=== PATIENT | female | born 2000 | race Caucasian/White ===

== ENCOUNTER 2024-02-14 10:44 | Outpatient (OUT) | payer OTHER, SELFPAY ==
--- NOTE | 2024-02-14 10:55 | US_ITS ---
[address] [address] Patient Name: GAGAN POST MRN: [id number] date: 2000 Sex: F Assigned Patient Location: Current Patient Location: Accession/Order Number: [id number] Exam Date: 02/14/2024 11:00 Report Date: 02/15/2024 04:25 At the request of: NON-STAFF PHYSICIAN Procedure: US pelvis w/ transvaginal EXAMINATION: US pelvis w/ transvaginal HISTORY: Intrauterine Device Placement Z97.5 COMPARISON: No relevant comparison available. TECHNIQUE: Transabdominal and/or transvaginal sonographic examination was performed as indicated by examination type. FINDINGS: UTERUS: Normal size and appearance. Uterus size: 7.2 x 4.2 x 3.0 cm ENDOMETRIUM: IUD within endometrial cavity appearing to be in good position. Normal homogeneous appearance. Endometrial thickness: 9 mm RIGHT OVARY: Normal size and appearance. Duplex Doppler demonstrates normal waveform and flow; resistive index 0.7. Ovary size: 3. 62.5 x 2.0 cm LEFT OVARY: Normal size and appearance. Duplex Doppler demonstrates normal waveform and flow; resistive index 0.5. Ovary size: 2.0 x 1.7 x 2.3 cm CUL-DE-SAC: Unremarkable. No significant free fluid. BLADDER: Unremarkable. OTHER: None. US/US pelvis w/ transvaginal IMPRESSION: 1. IUD within endometrial cavity appearing to be in good position. 2. Otherwise unremarkable uterus and ovaries. Electronically authenticated by: BLAINE RASHID Date: 02/15/2024 04:25
== END 2024-02-14 10:45 | disposition home or self-care (01) ==
LOC: US 10:47
PROVIDERS: PCP Family Medicine
DX: Z97.5 Presence of (intrauterine) contraceptive device (principal)
CPT/HCPCS: 76830; 76856